=== PATIENT | female | born 1985 | race Asian ===

== ENCOUNTER 2023-08-12 09:18 | Outpatient (REF) | payer OTHER, SELFPAY ==
[2023-08-12 10:26] LABS: MANUAL DIFF FLAG NO
[2023-08-12 10:50] LABS: Basophils Percent Auto 0.4 % (0-2); Eosinophils Absolute Auto 0.2 X10*3/uL (0.0-0.4); Eosinophils Percent Auto 2.9 % (0-4); Hematocrit 37.8 % (37.0-47.0); Hemoglobin 12.2 g/dl (12.0-16.0); Imm Gran Abs Auto 0.03 X10*3/uL (0.00-0.03); Imm Gran Pct Auto 0.4 % (0.0-0.4); Lymphocytes Percent Auto 36.2 % (20-40); Mean Corpuscular HGB Conc 32.3 g/dl (31.0-35.0); Mean Corpuscular Hemoglobin 26.9 pg (27.0-33.0); Mean Corpuscular Volume 83.4 fL (80.0-98.0); Mean Platelet Volume 10.1 fL (9.4-12.3); Monocytes Absolute Auto 0.5 X10*3/uL (0.1-1.2); Monocytes Percent Auto 6.1 % (2-11); Neutrophils Absolute Auto 4.5 x10*3/uL (2.0-8.3); Platelet Count 429 X10*3/uL (160-400); Red Blood Count 4.53 X10*6/uL (4.20-5.50); Red Cell Distribution Width 13.4 % (11.0-16.0); White Blood Count 8.4 X10*3/uL (4.8-10.8)
[2023-08-12 11:17] LABS: Alanine Aminotransferase 20 U/L (0-31); Albumin Level 4.5 g/dL (3.5-5.0); Alkaline Phosphatase 81 U/L (39-117); Anion Gap 12 (12-20); Aspartate Amino Transferase 19 U/L (5-31); Bilirubin Total 0.5 mg/dL (0.0-1.0); Blood Urea Nitrogen 14 mg/dL (9-16); Carbon Dioxide 25 mmol/L (22-29); Chloride 105 mmol/L (96-108); Cholesterol 230 mg/dL (<200); Estimated Glomerular Filt Rate > 60; Glucose Fasting 98 mg/dL (60-99); HDL Cholesterol 51 mg/dL (>40); Iron 111 mcg/dL (30-160); LDL Cholesterol Calculated 152 mg/dL (<100); Percent Iron Saturation 32 % (15-50); Sodium 138 mmol/L (135-145); Total Iron Binding Capacity 345 mcg/dL (228-428); Total Protein 8.4 g/dL (6.5-8.0); Triglycerides 136 mg/dL (<150); Unsaturated Iron Binding 234 ug/dL
[2023-08-12 11:32] LABS: Ferritin 73 ng/mL (10-122); TSH reflex Free T4 1.94 uIU/mL (0.32-4.0); Vitamin D 25-OH Total 13.5 ng/mL (>30)
[2023-08-12 15:18] LABS: Estimated Average Glucose 111 mg/dL; Hemoglobin A1c % 5.5 % (<6.0)
== END 2023-08-12 09:19 | disposition home or self-care (01) ==
LOC: HO.LAB 09:18
PROVIDERS: Visit Provider Internal Medicine
DX: Z00.00 Encounter for general adult medical examination without abnormal findings (principal)
CPT/HCPCS: 36415; 80053; 80061; 82306; 82728; 83036; 83540; 84443; 85025

== ENCOUNTER 2023-09-22 09:15 | Outpatient (REF) | payer OTHER, SELFPAY ==
[2023-09-22 10:55] LABS: HCG Quantitative 8613 mIU/mL
== END 2023-09-22 09:16 | disposition home or self-care (01) ==
LOC: HO.LAB 09:15
PROVIDERS: Visit Provider Internal Medicine
DX: Z00.00 Encounter for general adult medical examination without abnormal findings (principal)
CPT/HCPCS: 36415; 84702

== ENCOUNTER 2023-09-24 09:33 | Outpatient (REF) | payer OTHER, SELFPAY ==
[2023-09-24 11:05] LABS: HCG Quantitative 7560 mIU/mL
== END 2023-09-24 09:34 | disposition home or self-care (01) ==
LOC: HO.LAB 09:33
PROVIDERS: Visit Provider Obstetrics & Gynecology
DX: O09.299 Supervision of pregnancy with other poor reproductive or obstetric history, unspecified trimester (principal); Z3A.01 Less than 8 weeks gestation of pregnancy
CPT/HCPCS: 36415; 84702

== ENCOUNTER 2023-09-29 09:31 | Outpatient (REF) | payer OTHER, SELFPAY ==
[2023-09-29 12:00] LABS: HCG Quantitative 44780 mIU/mL
== END 2023-09-29 09:32 | disposition home or self-care (01) ==
LOC: HO.LAB 09:31
PROVIDERS: Visit Provider Obstetrics & Gynecology
DX: O20.0 Threatened abortion (principal)
CPT/HCPCS: 36415; 84702

== ENCOUNTER 2025-04-19 13:08 | Outpatient (REF) | payer OTHER, SELFPAY ==
--- OUTSIDE RECORDS SUMMARY | 2025-04-19 13:12 | XMS_ITS | Clinical Summary ---
Author Organization [facility] Address [address] [place] [address] Care Team Providers Care [employer] Name Role Phone Sherita Maldonado MD Primary Care Provider [phone] Allergies No known active allergies Medications vitamin with iron and folic acid ( VITAMINS) 28-0.8 MG Tab tablet Take 1 tablet by mouth daily. Active Active Problems Problem Noted Date Diagnosed Date Breast mass, right 07/08/2021 Left breast mass 07/08/2021 Family history of malignant neoplasm of ovary Family history of malignant neoplasm of uterus 1 Family History Medical History Relation Name Comments Uterine cancer Maternal Aunt Ovarian cancer Mother Relation Name Status Comments Maternal Aunt Alive Mother Social History Tobacco Use Types Packs/Day Years Used Date Smoking Tobacco: Never Smokeless Tobacco: Never Alcohol Use Standard Drinks/Week Comments Never 0 (1 standard drink = 0.6 oz pur e alcohol) Comments Unknown Sex and Gender Information Value Date Recorded Sex Assigned at Not on file Legal Sex Female 9:27 AM EDT Gender Identity Not on file Sexual Orientation Not on file Last Filed Vital Signs Vital Sign Reading Time Taken Comments Blood Pressure 98/58 07/08/2021 4:01 PM EDT Pulse 90 07/08/2021 4:01 PM EDT Temperature 36.8 C (98.2 F) 07/08/2021 4:01 PM EDT Respiratory Rate - - Oxygen Saturation - - Inhaled Oxygen Concentration - - Weight 59.9 kg (132 lb) 07/08/2021 4:01 PM EDT Height 162.6 cm (5' 4 ) 07/08/2021 4:01 PM EDT Body Mass Index 22.66 07/08/2021 4:01 PM EDT Plan of Treatment Health Maintenance Due Date Last Done Comments Hepatitis C Virus Screening 1987 HIV Screening 2000 DTaP/Tdap/Td Vaccines (1 - Tdap) 2006 Hepatitis B Vaccines (1 of 3 - 19+ 3-dose series) 2006 Pap Smear (Ages 21-65) 2008 COVID-19 Vaccine (1 - 2023-2 5 season) 2024 Influenza Vaccine 04/13/2025 HPV Vaccines Aged Out No longer eligi ble based on patient's age to complete this topic Pneumococcal Vaccine: Pediat rylan (0-5 Years) and At-Risk Patients (6 to 49 Years) Aged Out No longer eligible b ased on patient's age to complete this topic Insurance Care Teams [employer] U[employer] Relationship Specialty [place] [address] [place] [phone] PCP - General Obstetrics and Gynecology 06/17/21
[2025-04-19 13:42] LABS: Hematocrit 37.6 % (37.0-47.0); Hemoglobin 12.6 g/dl (12.0-16.0); Mean Corpuscular HGB Conc 33.5 g/dl (31.0-35.0); Mean Corpuscular Hemoglobin 27.5 pg (27.0-33.0); Mean Corpuscular Volume 81.9 fL (80.0-98.0); NRBC Abs Auto 0.000 X10*3/uL (0.0-0.012); NRBC Pct Auto 0.0 /100WBC (0.0-0.2); Platelet Count 322 X10*3/uL (160-400); Red Blood Count 4.59 X10*6/uL (4.20-5.50); White Blood Count 7.8 X10*3/uL (4.8-10.8)
[2025-04-19 13:49] LABS: Hemoglobin A1C 123.4805 umol/L; Total Hemoglobin (HGBA1C) 3350.1950 umol/L
[2025-04-19 14:20] LABS: Anion Gap 14 (12-20); Blood Urea Nitrogen 21 mg/dL (9-16); Calcium 9.0 mg/dL (8.4-10.2); Carbon Dioxide 23 mmol/L (22-29); Chloride 104 mmol/L (96-108); Cholesterol 210 mg/dL (<200); Estimated Glomerular Filt Rate > 60; HDL Cholesterol 54 mg/dL (>40); Potassium 3.8 mmol/L (3.3-5.1); Sodium 137 mmol/L (135-145); Triglycerides 71 mg/dL (<150); Uric Acid 5.4 mg/dL (2.4-5.7)
[2025-04-19 15:26] LABS: Reflex LDLD? No
== END 2025-04-19 13:09 | disposition home or self-care (01) ==
LOC: HO.LAB 13:08
PROVIDERS: Visit Provider Internal Medicine
DX: Z00.00 Encounter for general adult medical examination without abnormal findings (principal); Z13.0 Encounter for screening for diseases of the blood and blood-forming organs and certain disorders involving the immune mechanism; Z13.29 Encounter for screening for other suspected endocrine disorder; Z13.220 Encounter for screening for lipoid disorders
CPT/HCPCS: 36415; 80048; 80061; 82306; 83036; 84443; 84550; 85027; 85652

== ENCOUNTER 2025-07-07 11:13 | Outpatient (REF) | payer OTHER, SELFPAY ==
--- NOTE | ~2025-07-07 | MR_ITS ---
CLINICAL HISTORY: M54.16 - Radiculopathy, lumbar region MRI lumbar spine without contrast Comparison: None provided Findings: Mild lower bilateral facet hypertrophy. No significant intervertebral disc disease. No canal stenosis is identified. No acute bony signal abnormality. Posterior bony alignment is normal. Impression: No significant abnormality This document has been electronically signed by: Ney Holcomb MD on 07/09/2025 23:47:42
--- NOTE | ~2025-07-07 | MR_ITS ---
CLINICAL HISTORY: R10.2 - Pelvic and perineal pain MRI pelvis without contrast Comparison: None provided Findings: No significant bony signal abnormality. No soft tissue abnormalities are identified. Uterus normal size with an IUD. Prominent bilateral adnexal vasculature. Please correlate regarding pelvic congestion symptoms. Small volume free fluid in cul-de-sac. Impression: Bilateral adnexal vascular prominence with free fluid in cul-de-sac Please correlate regarding pelvic congestion syndrome symptoms This document has been electronically signed by: Ney Holcomb MD on 07/09/2025 23:03:41
--- OUTSIDE RECORDS SUMMARY | 2025-07-07 11:17 | XMS_ITS | Clinical Summary ---
Author Organization [facility] Address [address] [place] [address] Care Team Providers Care Supervisor [employer] Name Role Phone Sherita Maldonado MD Primary Care Provider [phone] Allergies No known active allergies Medications vitamin [...] series) 2006 Pap Smear (Ages 21-65) 2008 Influenza Vaccine 04/13/2025 COVID-19 Vaccine (1 - 2023-2 5 season) 2025 HPV Vaccines (No Doses Required) Completed Pneumococcal Vaccine: Pediat rylan (0-5 Years) and At-Risk Patients (6 to 49 Years) Aged Out No longer eligible b ased on patient's age to complete this topic Insurance Care Teams Supervisor [employer] Relationship Specialty Start Date End Date Sherita Madlonado MD [address] [phone] PCP - General Obstetrics and Gynecology 06/17/21
== END 2025-07-07 11:14 | disposition home or self-care (01) ==
LOC: HO.MRI 11:13
PROVIDERS: Visit Provider Internal Medicine
DX: M54.16 Radiculopathy, lumbar region (principal); R10.20 Pelvic and perineal pain unspecified side
CPT/HCPCS: 72148; 72195

== ENCOUNTER → 2025-07-07 11:29 | Outpatient (BNV) | payer OTHER, SELFPAY | PROVIDERS: Visit Provider Radiology Diagnostic Radiology | DX: M54.16 Radiculopathy, lumbar region (principal); N83.8 Other noninflammatory disorders of ovary, fallopian tube and broad ligament; R18.8 Other ascites | CPT/HCPCS: 72148; 72195 ==

== ENCOUNTER 2025-07-07 14:39 | Outpatient (REF) | payer OTHER, SELFPAY | END 2025-07-07 14:40 | disposition home or self-care (01) | LOC: HO.MRI 14:39 | PROVIDERS: Visit Provider Internal Medicine | DX: Z13.89 Encounter for screening for other disorder (principal) ==